=== PATIENT | male | born 1960 | race Caucasian/White ===

== ENCOUNTER 2023-02-10 13:45 | Outpatient (CLI) | payer BC, SELFPAY ==
--- NOTE | 2023-02-10 14:00 | CRLHL7_ITS ---
For Patients: As a result of the Cures Act, medical imaging exams and procedure reports are released immediately into your electronic medical record. You may view this report before your referring provider. If you have questions, please contact your health care provider. Indication: CHRONIC SINUSITIS, RIGHT SIDE BACK MOLAR TOOTH INFECTION Technique: Performed without IV contrast Comparison: None available Findings: Frontal sinuses: Mild mucosal thickening within the left frontal sinus. Minimal mucosal thickening involving the inferior right frontal sinus. Ethmoid sinuses: Patchy mild opacification of the ethmoid sinuses. Maxillary sinuses: Minimal mucosal thickening in the upper left maxillary sinus with patency of the sinus drainage pathway. Complete opacification of the right maxillary sinus with chronic periostitis is noted at the superolateral aspect along with occlusion of the sinus drainage pathway. Sphenoid sinuses: Trace mucosal thickening involving the anterior sphenoid sinuses. Patent sphenoethmoidal recesses. Nasal Cavity: Anterior leftward curvature of the nasal septum with a small left-sided nasal septal spur. No nasal polyps. Mild degenerative changes at the temporomandibular joints. No mastoid or middle ear effusion. The maxillary tooth roots appear intact. The mandibular teeth are not completely included on the examination. Impression: 1. Severe right maxillary sinus disease with occlusion of the sinus drainage pathway. 2. Mild sinus disease remaining sinuses. Please note that all CT scans at this facility use dose modulation, iterative reconstruction, and/or weight-based dosing when appropriate to reduce radiation dose to as low as reasonably achievable. Dictated by Franki Moreno MD @ 02/11/2023 12:57:21 PM (Electronically Signed)
== END 2023-02-10 13:46 | disposition home or self-care (01) ==
LOC: CT 13:46
PROVIDERS: Visit Provider Otolaryngology
DX: J32.9 Chronic sinusitis, unspecified (principal); J32.0 Chronic maxillary sinusitis
CPT/HCPCS: 70486

== ENCOUNTER 2023-05-08 09:40 | Day surgery (SDC) | payer BC, SELFPAY ==
[2023-05-08] VITALS (11 sets, daily range): BP systolic 118–153; BP diastolic 72–109; PULSE 64–102; RESP 16–18; TEMP 36.4–36.8; O2SAT 95–97; BMI 28.8
[2023-05-08] MEDS: LACTATED RINGERS 1000 ML 1,000 ML 100 ML IV (10:10)
[2023-05-08] MEDS: OXYMETAZOLINE 0.05% NASAL SPRAY 2 SPRAY NOSTRIL-B (10:15)
[2023-05-08] MEDS: SODIUM CHLORIDE 0.9 % (FLUSH) 10 ML SYRINGE IVF (10:21)
--- NOTE | 2023-05-08 12:05 | SUR.OPER ---
PATIENT QUESTIONS ANSWERED SATISFACTORILY PREOPERATIVELY. PATIENT BROUGHT TO OR #2 PER CART. Patient positioned supine on OR #2 bed. Perioperative team wrapped arms bilaterally at patient side with drawsheet. ? Final approval of positioning by surgeon.
[2023-05-08] MEDS: COCAINE HCL 4 % 4 ML SOLUTION NOSTRIL-B (12:13)
[2023-05-08] MEDS: BUPIVACAINE 0.5%/EPINEPHRINE 0.9 MG (30.9 ML) INJECTION (12:18)
[2023-05-08] MEDS: AYR SALINE NASAL GEL 1 APPLIC NOSTRIL-B (12:19)
[2023-05-08] MEDS: MUPIROCIN 1 GM PACKET 1 APPLIC TOPICAL (12:30)
--- NOTE | 2023-05-08 12:31 | W.ANESCHARGE ---
Anesthesia Charges Start Date/Time Anesthesia Start Date: 05/08/23 Anesthesia Start Time: 11:57 Stop Date/Time Anesthesia Stop Date: 05/08/23 Anesthesia Stop Time: 12:47
--- NOTE | 2023-05-08 12:34 | W.PM.ENTPROC ---
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 The inferior 3rd of the uncinate process on the right was taken down exposing natural ostium to maxillary sinus which was occluded by polypoid tissue. This was removed in and 1 cm antrostomy created. A large amount of pus and polypoid mucosa was removed from the hannah of the sinus. The ethmoid bulla on the right was taken down and dissection carried out in an anterior to posterior direction removing a moderate amount of polypoid tissue. There was no purulent tissue in the ethmoid on the right. The left ethmoid bulla was taken down and dissection carried out in an anterior to posterior direction all the way to the face of the sphenoid. Again a moderate amount of polypoid tissue was removed. Merocel pack was trimmed lengthwise coated in Bactroban and placed in the middle meatus on each side. Beneath that I placed a PA's the pack that was also cut in half and placed on each side. The patient procedure well was taken recovery in satisfactory condition. Blood loss was less than 50 mL. Surgeon: Moe Schwartz MD
--- NOTE | 2023-05-08 13:03 | W.ANESCHARGE ---
Anesthesia Charges Start Date/Time Anesthesia Start Date: 05/08/23 Anesthesia Start Time: 11:57 Stop Date/Time Anesthesia Stop Date: 05/08/23 Anesthesia Stop Time: 12:47
[2023-05-08] MEDS: IBUPROFEN 200 MG TABLET PO (13:27)
[2023-05-08] MEDS: OXYCODONE 5 MG TABLET PO (13:27)
== END 2023-05-08 13:59 | disposition home or self-care (01) ==
LOC: OR 09:40
PROVIDERS: Visit Provider Otolaryngology
PROC: (CPT 31231; principal; 2023-05-08 11:00)
DX: J32.0 Chronic maxillary sinusitis (principal); J32.2 Chronic ethmoidal sinusitis
CPT/HCPCS: 31267; 31255; 00160; 88305; 88311; A9270; J0330; J1100; J2250; J2405; J2704; J3010; J7120